=== PATIENT | female | born 1950 | race African-American/Black ===

== ENCOUNTER → 2022-08-12 10:19 | Outpatient (REF) | payer MEDICARE, MEDICAID, SELFPAY ==
--- NOTE | 2022-08-12 10:22 | CA_ITS ---
Transthoracic Echocardiogram Patient (Last, First, Middle): Carole Andrade, Gender: Female Date of : 1950 Age: 72 Procedure Date: 08/12/2022 Procedure Type: Transthoracic Echocardiogram Location: OP Height: 160.02 cm Weight: 70.76 kg BSA: 1.74 m2 Heart Rate: bpm BP: 135 / 78 mmHg Superintendent Track: MEÑO Referring MD: Araceli Cadet MD Symptoms: HTN Study Quality: Adequate ECG Rhythm: Sinus Conclusions: - The left ventricular systolic function is normal. The calculated ejection fraction is 57% by biplane method. - There is mild calcification of the aortic valve. - No obvious valvular pathology seen on this study. - Small plaque is seen in the sino tubular ridge. Findings Left Ventricle Normal left ventricular cavity size. There is mildly increased left ventricular wall thickness. The left ventricular systolic function is normal. The calculated ejection fraction is 57% by biplane method. There is no evidence of regional wall motion abnormalities. Diastolic function is normal for age. Right Ventricle Normal right ventricular cavity size and systolic function. Atria Both atria are normal in size. Aortic Valve There is a normal trileaflet aortic valve. There is mild calcification of the aortic valve. There is no aortic valve stenosis. There is no aortic valve regurgitation. Mitral Valve The mitral valve appears normal. There is trace mitral valve regurgitation. There is no mitral valve stenosis. Pulmonic Valve There is trace pulmonic valve regurgitation. Tricuspid Valve Normal tricuspid valve structure. There is trace tricuspid valve regurgitation. There is no evidence of pulmonary hypertension. Great Vessels The asc aorta is normal in size. Small plaque is seen in the sino tubular ridge. Venous The inferior vena cava is normal in size and collapses greater than 50% with inspiration. Pericardium/Pleural There is no evidence of pericardial effusion. Prior Study Comparison No prior study available for comparison. Recommendations, Care & Conclusions No obvious valvular pathology seen on this study. Measurements 2D Linear Measurements IVSd: 1.20 0.6-0.9/0.6-1.0 cm LVIDd: 4.29 3.9-5.3/4.2-5.9 cm LVIDd Index: 2.47 2.4-3.2/2.2-3.1 cm/m2 LVIDs: 2.21 2.0-3.6 cm LVPWd: 1.12 0.7-1.1 cm LA Diam: 3.80 2.7-3.8/3.0-4.0 cm LAIDs Index: 2.18 1.5-2.3 cm/m2 LV Mass: 218.25 67-162/88-224 g LV Mass Index: 125.43 43-95/49-115 g/m2 LVOT Diam: 1.90 3.0+(-)1.3 cm 2D Systolic Function EF 4C: 63.00 >55% EF 2C: 54.60 >55% EF BiP: 56.80 >55% Mitral Valve MV Pk E: 0.81 MV PK A: 0.97 MV Decel Time: 280.00 E/A: 0.80 E'Lateral: 8.27 E'Medial: 4.90 E/E' Med: 16.60 E/E' Lat: 9.80 PHT: 82.00 MVA PHT: 2.68 Decel [place]: 2.91 Aortic Valve AoV Pk Avinash: 1.71 AoV Mn Avinash: 1.03 AoV VTI: 0.40 AoV Pk Grad: 12.00 Aov Mn Grad: 5.00 ESME Cont.VTI: 1.77 LVOT LVOT Pk Avinash: 0.97 LVOT Mn Avinash: 0.61 LVOT VTI: 0.25 LVOT Pk Grad: 4.00 LVOT Mn Grad: 2.00 LVOT Diam: 1.90 LVOT Area: 2.84 Diastolic Function MV Pk E: 0.81 MV Pk A: 0.97 E/A: 0.80 E'Medial: 4.90 E/E' Med: 16.60 E' Laterial: 8.27 E/E' Lat: 9.80 Right Ventricle TAPSE (mm): 21.20 TVS' Avinash: 10.00 Tricuspid Valve TR Pk Avinash: 2.08 TR Pk Grad: 17.00 RA Press: 3.00 RVSP: 20.00 Great Vessels Aorta Sinus of Valsalva: 2.72 2.0-3.5 cm Ao Asc: 2.70 2.1-3.4 cm Updated in Other Vendor System with Status of Final Edison Villatoro MD electronically signed on 08/13/2022 10:15:32 AM with status of Final
== END ==
LOC: HO.CARD 10:19
PROVIDERS: PCP Internal Medicine; Visit Provider Internal Medicine
DX: I10 Essential (primary) hypertension (principal)
CPT/HCPCS: 93306

== ENCOUNTER 2023-08-13 12:58 | Emergency (ER) | payer MEDICARE, MEDICAID, SELFPAY ==
[2023-08-13 13:26] VITALS: BP 110/71; PULSE 72; RESP 18; TEMP 36.4; O2SAT 100; BMI 26.4
--- NOTE | 2023-08-13 13:32 | ED_ITS ---
HPI - General Adult General Chief complaint: General Medical Stated complaint: swollen feet/legs, red bites Related Data Allergies Allergy/AdvReac Type Severity Reaction Status Date / Time No Known Allergies Allergy Verified 08/13/23 13:34 Physical Exam ED Vital Signs: BMI result Body Mass Index 26.4 Course Course Course Narrative: EMILIA- 73 year old female presents for evaluation of leg swelling R>L over the last few days. She reports that she was at [facility] ER last night but left AMA. Plan for labs, chest x-ray, US of lower extremities to r/o DVT and will attempt to get records from [facility]. Medical Decision Making Lab Data 08/13/23 13:40 08/13/23 13:40 Labs: Lab Results 08/13/23 Range/Units 13:40 WBC 10.1 (4.8-10.8) X10*3/uL RBC 4.59 (4.20-5.50) X10*6/uL Hgb 13.5 (12.0-16.0) g/dl Hct 40.3 (37.0-47.0) % MCV 87.8 (80.0-98.0) fL MCH 29.4 (27.0-33.0) pg MCHC 33.5 (31.0-35.0) g/dl RDW 15.2 (11.0-16.0) % Plt Count 196 (160-400) X10*3/uL MPV 11.9 (9.4-12.3) fL Immature Gran % (Auto) 0.3 (0.0-0.4) % Neut % (Auto) 56.1 (45-73) % Lymph % (Auto) 34.2 (20-40) % Bradford % (Auto) 7.3 (2-11) % Eos % (Auto) 1.9 (0-4) % Baso % (Auto) 0.2 (0-2) % Lymph # (Auto) 3.5 (1.2-4.9) X10*3/uL Bradford # (Auto) 0.7 (0.1-1.2) X10*3/uL Eos # (Auto) 0.2 (0.0-0.4) X10*3/uL Baso # (Auto) 0.0 (0.0-0.2) X10*3/uL Abs Immat Gran (auto) 0.03 (0.00-0.03) X10*3/uL Absolute Neuts (auto) 5.7 (2.0-8.3) x10*3/uL Absolute Nucleated RBC 0.000 (0.0-0.012) X10*3/uL Nucleated RBC % (auto) 0.0 (0.0-0.2) /100WBC Sodium 140 (135-145) mmol/L Potassium 3.7 (3.3-5.1) mmol/L Chloride 107 (96-108) mmol/L Carbon Dioxide 21 L (22-29) mmol/L Anion Gap 16 (12-20) BUN 18 H (9-16) mg/dL Creatinine 0.89 (0.5-1.4) mg/dL Estim Creat Clear Calc 55.6 Estimated GFR > 60 Random Glucose 80 (60-115) mg/dL Calcium 10.4 H (8.4-10.2) mg/dL Total Bilirubin 0.4 (0.0-1.0) mg/dL AST 38 H (5-31) U/L ALT 47 H (0-31) U/L Alkaline Phosphatase 63 (39-117) U/L B-Natriuretic Peptide < 10 (<100) pg/mL Total Protein 8.6 H (6.5-8.0) g/dL Albumin 4.0 (3.5-5.0) g/dL Lipase 45 (8-78) U/L Discharge Plan Discharge Clinical Impression: Leg edema Patient Disposition: Left Without Being Seen Interventions: LWBS Worksheet Last Done: 08/13/23 15:00 Discharge Date/Time: 08/13/23 15:03
[2023-08-13 13:46] LABS: MANUAL DIFF FLAG NO
[2023-08-13 13:49] LABS: Basophils Percent Auto 0.2 % (0-2); Eosinophils Absolute Auto 0.2 X10*3/uL (0.0-0.4); Eosinophils Percent Auto 1.9 % (0-4); Hematocrit 40.3 % (37.0-47.0); Hemoglobin 13.5 g/dl (12.0-16.0); Imm Gran Abs Auto 0.03 X10*3/uL (0.00-0.03); Imm Gran Pct Auto 0.3 % (0.0-0.4); Lymphocytes Absolute Auto 3.5 X10*3/uL (1.2-4.9); Lymphocytes Percent Auto 34.2 % (20-40); Mean Corpuscular HGB Conc 33.5 g/dl (31.0-35.0); Mean Corpuscular Hemoglobin 29.4 pg (27.0-33.0); Mean Corpuscular Volume 87.8 fL (80.0-98.0); Mean Platelet Volume 11.9 fL (9.4-12.3); Monocytes Absolute Auto 0.7 X10*3/uL (0.1-1.2); Monocytes Percent Auto 7.3 % (2-11); Neutrophils Absolute Auto 5.7 x10*3/uL (2.0-8.3); Neutrophils Percent Auto 56.1 % (45-73); Platelet Count 196 X10*3/uL (160-400); Red Blood Count 4.59 X10*6/uL (4.20-5.50); Red Cell Distribution Width 15.2 % (11.0-16.0); White Blood Count 10.1 X10*3/uL (4.8-10.8)
[2023-08-13 14:09] LABS: B Type Natriuretic Peptide < 10 pg/mL (<100)
[2023-08-13 14:15] LABS: Alanine Aminotransferase 47 U/L (0-31); Alkaline Phosphatase 63 U/L (39-117); Anion Gap 16 (12-20); Aspartate Amino Transferase 38 U/L (5-31); Bilirubin Total 0.4 mg/dL (0.0-1.0); Blood Urea Nitrogen 18 mg/dL (9-16); Calcium 10.4 mg/dL (8.4-10.2); Carbon Dioxide 21 mmol/L (22-29); Chloride 107 mmol/L (96-108); Creatinine Clr Calc Pharmacy 55.6; Estimated Glomerular Filt Rate > 60; Glucose Random 80 mg/dL (60-115); Lipase 45 U/L (8-78); Potassium 3.7 mmol/L (3.3-5.1); Sodium 140 mmol/L (135-145); Total Protein 8.6 g/dL (6.5-8.0)
== END 2023-08-13 15:03 | disposition left against medical advice (07) ==
PROVIDERS: Physician Assistant; Emergency Provider Emergency Medicine; PCP Internal Medicine
DX: M79.89 Other specified soft tissue disorders (principal)
CPT/HCPCS: 36415; 80053; 83690; 83880; 85025; 99281; 99283

== ENCOUNTER 2023-08-28 15:09 | Outpatient (REF) | payer MEDICARE, MEDICAID, SELFPAY ==
--- NOTE | ~2023-08-28 | US_ITS ---
EXAMINATION: US VENOUS ULTRASOUND WITH DOPPLER LOWER EXTREMITY, RIGHT CLINICAL INFORMATION: COMPARISON: None available. TECHNIQUE: Ultrasound of the deep veins is performed from the hip to the calf with compression sonography and color and pulse Doppler assessment. Spectral analysis with color-flow imaging is performed. FINDINGS: There is normal venous compression and respiratory variation and augmented flow. The visualized common femoral vein, superficial femoral vein, profunda femoral vein, popliteal vein, and the trifurcation region shows no evidence of deep venous thrombosis. There is no significant popliteal fossa cyst. If the patient's symptoms persist, followup ultrasound in 5 days 7 days might be of value to exclude proximal propagation from a non-visualized calf vein. US/US venous duplex LE RT IMPRESSION: No DVT demonstrated in the right lower extremity.
== END 2023-08-28 15:10 | disposition home or self-care (01) ==
LOC: HO.US 15:09
PROVIDERS: Absent Provider Internal Medicine; PCP Internal Medicine; Visit Provider Registered Nurse
DX: R22.41 Localized swelling, mass and lump, right lower limb (principal)
CPT/HCPCS: 93971

== ENCOUNTER 2024-02-04 16:01 | Outpatient (REF) | payer OTHER, SELFPAY ==
[2024-02-04 18:26] LABS: Influenza A PCR NEGATIVE (Negative); Influenza B PCR NEGATIVE (Negative); Resp Syncy Virus RNA Qual PCR NEGATIVE (Negative); SARS COV2 PCR INHOUSE NEGATIVE (Negative)
== END 2024-02-04 16:02 | disposition home or self-care (01) ==
LOC: HO.CHCLNP 16:01
PROVIDERS: Visit Provider Family Medicine
DX: J09.X2 Influenza due to identified novel influenza A virus with other respiratory manifestations (principal); R09.81 Nasal congestion; R05.3 Chronic cough
CPT/HCPCS: 0241U

== ENCOUNTER 2024-06-15 15:50 | Outpatient (REF) | payer OTHER, SELFPAY ==
--- NOTE | ~2024-06-15 | XR_ITS ---
EXAMINATION: XR CHEST 2 VIEWS CLINICAL INFORMATION: Lower posterior chest rales. COMPARISON: None. TECHNIQUE: Frontal and lateral views of the chest were obtained. FINDINGS: The heart size is at least top normal. The great vessels, pulmonary vasculature and mediastinum are normal. The lungs show no focal infiltrate, effusion or pneumothorax. There is no acute osseous abnormality. XR/XR chest 2V IMPRESSION: No active cardiopulmonary disease. Electronically signed by: Doug Coombs MD 07/13/2024 12:57 PM EDT
--- NOTE | ~2024-06-15 | XR_ITS ---
EXAMINATION: XR HIP, LEFT CLINICAL INFORMATION: Lateral left hip pain. COMPARISON: None available. TECHNIQUE: AP and frog-leg lateral views of the left hip. FINDINGS: No fracture. Alignment is anatomic. Hip joint space is maintained. The left femoral head is smooth. Soft tissues are unremarkable. There are pelvic atherosclerotic calcifications. XR/XR hip LT min 2V IMPRESSION: Normal left hip. Electronically signed by: Doug Coombs MD 07/13/2024 02:51 PM EDT RP
== END 2024-06-15 15:51 | disposition home or self-care (01) ==
LOC: HO.XRAY 15:50
PROVIDERS: Absent Provider Internal Medicine; PCP Internal Medicine; Visit Provider Internal Medicine
DX: M25.552 Pain in left hip (principal); R09.89 Other specified symptoms and signs involving the circulatory and respiratory systems
CPT/HCPCS: 71046; 73502

== ENCOUNTER 2025-06-01 10:57 | Outpatient (REF) | payer OTHER, SELFPAY ==
--- OUTSIDE RECORDS SUMMARY | 2025-06-01 11:47 | XMS_ITS ---
[facility] Name [facility] Organization [facility] Results Test Name/Text Value Interpretation Date Range Source BNP BLD MCNC 43.0 pg/mL Normal 08/22/2023 0 - 100 [facility] FLORINA CREAT SERPL MCNC 0.9 mg/dL Normal 08/22/2023 0.5 - 1 [facility] POTASSIUM SERPL SCNC 4.4 mmol/L Normal 08/22/2023 3.5 - 5 .1 [facility] CALCIUM SERPL MCNC 9.3 mg/dL Normal 08/22/2023 8.4 - 10.2 [facility] CHLORIDE SERPL SCNC 108.0 mmol/L Above high normal 98 - 107 [facility] GLUCOSE SERPL MCNC 102.0 mg/dL Normal 08/22/2023 70 - 199 [facility] HCO3 SER SCNC 21.0 mmol/L Below low normal 08/22/2023 24 - 3 2 [facility] SODIUM SERPL SCNC 138.0 mmol/L Normal 08/22/2023 135 - 14 5 [facility] Glomerular filtration rate/1.73 sq M. predicted 68.0 Normal 08/22/2023 60 - [facility] BUN SERPL MCNC 15.0 mg/dL Normal 08/22/2023 7 - 17 CTT [facility] ANION GAP SERPL SCNC 9.0 mmol/L Normal 08/22/2023 5 - 14 [facility] NEUTROPHILS NO. BLD AUTO 6.7 K/uL Normal 08/22/2023 1.8 - 7.8 [facility] EOSINOPHIL NFR BLD AUTO 1.7 % Normal 08/22/2023 0 - 6 [facility] MONOCYTES NO. BLD AUTO 0.8 K/uL Normal 08/22/2023 0 - 0.8 [facility] PMV BLD AUTO 9.9 fL Normal 08/22/2023 7.4 - 11.4 [facility] FLORIAN BASOPHILS NFR BLD AUTO 1.8 % Normal 08/22/2023 0 - 2 [facility] LYMPHOCYTES NO. BLD AUTO 3.3 K/uL Above high normal 08/22/2023 1 - 3.2 [facility] MCHC RBC AUTO MCNC 34.8 g/dL Normal 08/22/2023 32 - 36 [facility] HGB BLD MCNC 13.2 g/dL Normal 08/22/2023 12.5 - 16 [facility] RAN MCH RBC QN AUTO 31.1 pg Normal 08/22/2023 25 - 33 [facility] NEUTROPHILS NFR BLD AUTO 59.8 % Normal 08/22/2023 44 - 74 [facility] DIFFERENTIAL TYPE AUTOMATED Normal 08/22/2023 C [facility] LYMPHOCYTES NFR BLD AUTO 29.5 % Normal 08/22/2023 20 - 48 [facility] EOSINOPHIL NO. BLD AUTO 0.2 K/uL Normal 08/22/2023 0 - 0.5 [facility] MCV RBC AUTO 89.5 fL Normal 08/22/2023 78 - 100 [facility] RAN BASOPHILS IN BLOOD BY AUTOMATED COUNT 0.2 K/uL Normal 08/22/2023 0 - 0.2 [facility] HCT VFR BLD AUTO 38.0 % Normal 08/22/2023 37 - 47 [facility] WBC NO. BLD AUTO 11.2 K/uL Above high normal 08/22/2023 4 - 10.5 [facility] MONOCYTES NFR BLD AUTO 7.2 % Normal 08/22/2023 2 - 12 [facility] RDW RBC AUTO RTO 15.9 % Normal 08/22/2023 12.1 - 16.2 [facility] PLATELET NO. BLD AUTO 215.0 K/uL Normal 08/22/2023 150 - 450 [facility] RBC NO. BLD AUTO 4.25 M/uL Normal 08/22/2023 4.2 - 5.4 CT [facility] Encounters Encounter Type Encounter Reason Primary Diagnosis [facility] Date [facility] Localized edema Localized edema [facility] 08/22/2023 Care Team Organization Name Specialty Phone Email Start Date End [facility] te [facility] 01/09/2024 01/18/2025 [facility] 01/09[place]2024 [facility] [place]16[place]2025 [facility] 08/22/2023
--- OUTSIDE RECORDS SUMMARY | 2025-06-01 11:47 | XMS_ITS | Encounter Summary ---
Author Organization [employer] Address [address] [facility] [address]t [place] [address] Care Team Providers Care Brim Molder Name Role Phone Araceli Cadet MD Primary Care Provider Encounter Details Date Type Department Care Team (Late st Contact Info) Description 12/23/2023 Orders Only [facility] CHC MED & PEDS [address] [place], [place] [phone] Araceli Cadet MD [address] [place] [address] Social History Tobacco Use Types Packs/Day Years Used Date Smoking Tobacco: Every Day Cigarettes 0.5 48 Smokeless Tobacco: Current Alcohol Use Standard Drinks/Week Comments Defer 0 (1 standard drink = 0.6 oz pur e alcohol) Housing Stability Answer Date Recorded What is your housing situation today? I do not have housing (Staying with others, in a hotel, in a intermediate, living outside on the street, on a beach, in a car, or in a park 08/11/[address] you li ve. Do you have problems with any of the following? None of the above 08/11/2023 Food Insecurity Answer Date Recorded Within the past 12 months, y ou worried that your food would run out before you got money to buy more: Never True 08/17/2023 Within the past 12 months,th e food you bought just didn't last and you didn't have enough money to get more: Never True Transportation Answer Date Recorded In the past 12 months, has l ack of transportation kept you from medical appts, meetings, work or from getting things needed for daily living? No 08/17/2023 Utilities Answer Date Recorded In the past 12 months, has t he [employer], [employer], oil or water company threatened to shut off services in your home? No 08/17/2023 Depression Answer Date Recorded Patient Health Questionnaire-2 Score 0 10/06/2022 Comments Unknown Sex and Gender Information Value Date Recorded Sex Assigned at Female 09/01/2022 10:21 AM EDT Legal Sex Female 10:21 AM EDT Gender Identity Female 09/01/2022 10:21 AM EDT Sexual Orientation Don't know 09/01/2022 10 :21 AM EDT documented as of this encounter Plan of Treatment Upcoming Encounters Date Type Department Care Team (Late st Contact Info) Description 06/19/2025 9:45 AM EDT Clinical Support [facility] MED & PEDS [address] [place] [address] documented as of this encounter Visit Diagnoses Not on filedocumented in this encounter Care Teams Brim Molder Relationship Specialty Start Date End Date Araceli Cadet MD [address] [place] [address] PCP - General Internal Medicine 11/02/18 documented as of this encounter
--- OUTSIDE RECORDS SUMMARY | 2025-06-01 11:47 | XMS_ITS | Clinical Summary ---
Author Organization [facility] Address [address] [place] [address] Care Team Providers Care Manager Maintenance Name Role Phone Unavailable Primary Care Provider Unavailabl e Allergies No known active allergies Medications No known medications Social History Tobacco Use Types Packs/Day Years Used Date Smoking Tobacco: Never Assessed Comments Unknown Sex and Gender Information Value Date Recorded Sex Assigned at Female 01/09/2024 2:03 PM EST Legal Sex Female 1:51 PM EST Gender Identity Female 01/09/2024 2:03 PM EST Sexual Orientation Choose not to disclose 2023 2:03 PM EST Last Filed Vital Signs Vital Sign Reading Time Taken Comments Blood Pressure 141/72 01/09/2024 2:18 PM EST Pulse 71 01/09/2024 1:55 PM EST Temperature 36.1 C (96.9 F) 01/09/2024 1:55 PM EST Respiratory Rate 18 01/09/2024 2:18 PM EST Oxygen Saturation 99% 01/09/2024 1:55 PM EST Inhaled Oxygen Concentration - - Weight - - Height - - Body Mass Index - - Plan of Treatment Health Maintenance Due Date Last Done Comments Hepatitis C Virus Screening 1950 DTaP/Tdap/Td Vaccines (1 - Tdap) 1971 Pneumococcal Vaccines 50+ (1 of 2 - PCV) 1971 Mammogram 1992 Colonoscopy 1997 Zoster (Shingles) Vaccine (1 of 2) 2002 DXA Bone Density (Females,Ages 65 and older) 2017 COVID-19 Vaccine (3 - season) 2024 02/06/2021, 01/09/2021 Influenza Vaccine 06/02/2025 08/02/2023, , 08/25/2020, Additional history exists RSV Vaccine 60 years and older and Patients (1 - 1-dose 75+ series) 2027 Hepatitis B Vaccines Aged Out No long er eligible based on patient's age to complete this topic Insurance MEDICARE PART A & B
--- OUTSIDE RECORDS SUMMARY | 2025-06-01 11:47 | XMS_ITS | Clinical Summary ---
Author Organization [facility] Address [address] [place] [id number] Care Team Providers Care Pediatric Care Coordinator Name Role Phone Unavailable Primary Care Provider Unavailabl e Allergies No known active allergies Medications No known medications Social History Tobacco Use Types Packs/Day Years Used Date Smoking Tobacco: Never Assessed Sex and Gender Information Value Date Recorded Sex Assigned at Female 08/21/2023 11:43 PM EDT Gender Identity Not on file Sexual Orientation Not on file Job Start Date Occupation Industry Not on file Not on file Not on file Last Filed Vital Signs Vital Sign Reading Time Taken Comments Blood Pressure 147/94 08/21/2023 11:12 PM EDT Pulse 82 08/21/2023 11:12 PM EDT Temperature 37 C (98.6 F) 08/21/2023 11:12 PM EDT Respiratory Rate 18 08/21/2023 11:12 PM EDT Oxygen Saturation 95% 08/21/2023 11:12 PM EDT Inhaled Oxygen Concentration - - Weight - - Height - - Body Mass Index - - Plan of Treatment Not on file
--- OUTSIDE RECORDS SUMMARY | 2025-06-01 11:47 | XMS_ITS | Clinical Summary ---
Author Organization [facility] Address [address] [place] [address] Care Team Providers Care Cupola Liner Helper Name Role Phone Unavailable Primary Care Provider Unavailabl e Social History Tobacco Use Types Packs/Day Years Used Date Smoking Tobacco: Never Assessed Comments Unknown Sex and Gender Information Value Date Recorded Sex Assigned at Not on file Legal Sex Female 1:02 PM EST Gender Identity Not on file Sexual Orientation Not on file Obstetrics History Plan of Treatment Health Maintenance Due Date Last Done Comments Breast Cancer Screening 1950 DTaP,Tdap,and Td Vaccines (1 - Tdap) 1971 Pneumococcal Vaccine: 50+ Ye ars (1 of 1 - PCV) 2002 Zoster Vaccines (1 of 2) 2002 Colorectal Cancer Screening: Colonoscopy 09/30/2022 Falls Risk Assessment 09/30/2022 Hepatitis C Screening 09/30/2022 Osteoporosis Screening (Bone Density Screening) 09/30/2022 Social Influencers of Health Screening 09/30/2022 COVID-19 Vaccine ( - 2023-2 5 season) 2024 Depression Screening 11/02/2024 Influenza Vaccine (#1) 2025 RSV Immunization Adult Patie nts (1 - 1-dose 75+ series) 2027 HIB Vaccines Aged Out No longer eligi ble based on patient's age to complete this topic HPV Vaccines Aged Out No longer eligi ble based on patient's age to complete this topic Hepatitis A Vaccines Aged Out No long er eligible based on patient's age to complete this topic Hepatitis B Vaccines Aged Out No long er eligible based on patient's age to complete this topic IPV Vaccines Aged Out No longer eligi ble based on patient's age to complete this topic MMR Vaccines Aged Out No longer eligi ble based on patient's age to complete this topic Meningococcal ACWY Vaccine Aged Out N o longer eligible based on patient's age to complete this topic Meningococcal B Vaccine Aged Out No l onger eligible based on patient's age to complete this topic RSV Immunization Patients Un david 20 months Aged Out No longer eligible b ased on patient's age to complete this topic Varicella Vaccines Aged Out No longer eligible based on patient's age to complete this topic
[2025-06-01 14:08] LABS: MANUAL DIFF FLAG NO
[2025-06-01 14:29] LABS: Hematocrit 44.6 % (37.0-47.0); Hemoglobin 14.5 g/dl (12.0-16.0); Imm Gran Abs Auto 0.02 X10*3/uL (0.00-0.03); Imm Gran Pct Auto 0.3 % (0.0-0.4); Lymphocytes Absolute Auto 2.1 X10*3/uL (1.2-4.9); Mean Corpuscular HGB Conc 32.5 g/dl (31.0-35.0); Mean Corpuscular Hemoglobin 28.8 pg (27.0-33.0); Mean Corpuscular Volume 88.7 fL (80.0-98.0); NRBC Abs Auto 0.000 X10*3/uL (0.0-0.012); NRBC Pct Auto 0.0 /100WBC (0.0-0.2); Platelet Count 159 X10*3/uL (160-400); Red Blood Count 5.03 X10*6/uL (4.20-5.50); White Blood Count 5.8 X10*3/uL (4.8-10.8)
[2025-06-01 14:43] LABS: Alanine Aminotransferase 25 U/L (0-31); Albumin Level 3.7 g/dL (3.5-5.0); Alkaline Phosphatase 72 U/L (39-117); Anion Gap 11 (12-20); Aspartate Amino Transferase 31 U/L (5-31); Blood Urea Nitrogen 13 mg/dL (9-16); Calcium 9.3 mg/dL (8.4-10.2); Carbon Dioxide 26 mmol/L (22-29); Chloride 111 mmol/L (96-108); Cholesterol 177 mg/dL (<200); Estimated Glomerular Filt Rate 59; HDL Cholesterol 22 mg/dL (>40); Potassium 3.8 mmol/L (3.3-5.1); Sodium 144 mmol/L (135-145); Total Protein 7.2 g/dL (6.5-8.0); Triglycerides 292 mg/dL (<150)
== END 2025-06-01 10:58 | disposition home or self-care (01) ==
LOC: HO.CHCLDS 10:57
PROVIDERS: Visit Provider Internal Medicine
DX: I10 Essential (primary) hypertension (principal); E78.00 Pure hypercholesterolemia, unspecified
CPT/HCPCS: 36415; 80053; 80061; 84443; 85025

== ENCOUNTER → 2025-07-12 07:51 | Outpatient (REF) | payer OTHER, SELFPAY ==
--- NOTE | 2025-07-12 07:54 | CA_ITS ---
Transthoracic Echocardiogram Patient (Last, First, Middle): Carole Andrade, Gender: F Date of : 1950 Age: 75 Procedure Date: 07/12/2025 Procedure Type: Transthoracic Echocardiogram Location: OP Height: 165.1 cm Weight: 72.58 kg BSA: 1.80 m2 Heart Rate: 46 bpm BP: 130 / 78 mmHg Tooth Cutter: TORRES Referring MD: Araceli Cadet MD C D Area Supervisor: Cuate Walls MD Symptoms: I10 HTN , LVH ON EKG Study Quality: Adequate ECG Rhythm: Bradycardia Conclusions: - 1. Normal LV ejection fraction of 60 65% with impaired relaxation filling pattern 2. Mild calcific aortic valve changes noted trace aortic regurgitation 3. No gross pericardial effusion Findings Left Ventricle Normal left ventricular size, thickness, and systolic function. The visually estimated ejection fraction is between 60-65%. Spectral Doppler is indicative of an impaired relaxation filling pattern. E/E prime ratio is between 8 and 15 consistent with indeterminate filling pressures. Right Ventricle Normal right ventricular cavity size and systolic function. Atria Both atria are normal in size. There is no evidence of interatrial shunt. Aortic Valve There is mild calcification of the aortic valve. There is no aortic valve stenosis. There is trace (trivial) aortic valve regurgitation. Mitral Valve Normal mitral valve structure and function. There is trace mitral valve regurgitation. There is no mitral valve stenosis. Pulmonic Valve The pulmonic valve is likely normal. There is mild pulmonic valve regurgitation. Tricuspid Valve Normal tricuspid valve structure. Tricuspid regurgitation envelope is inadequate for calculation of right ventricular systolic pressure. Normal right atrial pressure. Great Vessels All visible segments of the aorta are normal in size. The pulmonary artery was not well visualized. There is no dilatation of the ascending aorta measuring 3.00 cm. Venous The inferior vena cava is normal in size and collapses greater than 50% with inspiration. Pericardium/Pleural There is no evidence of pericardial effusion. Prior Study Comparison No significant change compared to prior study dated: 08/12/2022. Measurements 2D Linear Measurements IVSd: 1.09 0.6-0.9/0.6-1.0 cm LVIDd: 4.78 3.9-5.3/4.2-5.9 cm LVIDd Index: 2.66 2.4-3.2/2.2-3.1 cm/m2 LVIDs: 2.81 2.0-3.6 cm LVPWd: 0.73 0.7-1.1 cm LA Diam: 4.00 2.7-3.8/3.0-4.0 cm LAIDs Index: 2.22 1.5-2.3 cm/m2 LV Mass: 185.28 67-162/88-224 g LV Mass Index: 102.93 43-95/49-115 g/m2 LVOT Diam: 1.90 3.0+(-)1.3 cm 2D Systolic Function EF 4C: 67.40 >55% EF 2C: 63.20 >55% EF BiP: 64.00 >55% Mitral Valve MV Pk E: 0.60 MV PK A: 0.73 MV Decel Time: 309.00 E/A: 0.80 E'Lateral: 4.56 E'Medial: 3.12 E/E' Med: 19.40 E/E' Lat: 13.20 PHT: 90.00 MVA PHT: 2.44 Decel [place]: 1.96 Aortic Valve AoV Pk Avinash: 1.61 AoV Pk Grad: 10.00 ESME: 2.10 LVOT LVOT Pk Avinash: 1.10 LVOT Mn Avinash: 0.73 LVOT VTI: 0.20 LVOT Pk Grad: 5.00 LVOT Mn Grad: 3.00 LVOT Diam: 1.90 LVOT Area: 2.84 Diastolic Function MV Pk E: 0.60 MV Pk A: 0.73 E/A: 0.80 E'Medial: 3.12 E/E' Med: 19.40 E' Laterial: 4.56 E/E' Lat: 13.20 Right Ventricle TAPSE (mm): 14.30 TVS' Avinash: 9.38 Tricuspid Valve RA Press: 3.00 Great Vessels Aorta Sinus of Valsalva: 2.70 2.0-3.5 cm Ao Asc: 3.00 2.1-3.4 cm Pulmonary Veins Pulm Vein S/D 1.80 Pulmonary Valve PV Pk Avinash: 1.00 Peak PV Grad: 4.00 IA Pk Avinash: 2.19 Updated in Other Vendor System with Status of Final Cuate Walls MD electronically signed on 07/12/2025 1:36:37 PM with status of Final
--- OUTSIDE RECORDS SUMMARY | 2025-07-12 07:54 | XMS_ITS | Encounter Summary ---
Author Organization [employer] [facility] Address [address] [place] [address] Care Team Providers Care Hvac Technician Residential Name Role Phone Araceli Cadet MD Primary Care Provider [phone] Encounter Details Date Type Department Care Team (Late st Contact Info) Description 06/02/2025 Orders Only [facility] CHC MED & PEDS [address] [place], [place] [phone] Araceli Cadet MD [address] [place], [place] [phone] Social History Tobacco Use Types Packs/Day Years Used Date Smoking Tobacco: Every Day Cigarettes 0.5 48 Smokeless Tobacco: Current Alcohol Use Standard Drinks/Week Comments Defer 0 (1 standard drink = 0.6 oz pur e alcohol) Housing Stability Answer Date Recorded What is your housing situation today? I do not have housing (Staying with others, in a hotel, in a longterm, living outside on the street, on a [...] the past 12 months, has t he electric, gas, oil or water company threatened to shut [...] as of this encounter Plan of Treatment Not on file documented as of this encounter Visit Diagnoses Not on filedocumented in this encounter Care Teams Hvac Technician Residential Relationship Specialty Start Date End Date Araceli Cadet MD [address] [place] [address] PCP - General Internal Medicine 11/02/18 documented as of this encounter
--- OUTSIDE RECORDS SUMMARY | 2025-07-12 07:54 | XMS_ITS | Encounter Summary ---
Author Organization [employer] Address [address] [facility] [address] [place] [address] Care Team Providers Care Mica Miner Name Role Phone Araceli Cadet MD Primary Care Provider Reason for Visit * Reason Onset Date Comments requesting call back 06/05/2025 Encounter Details Date Type Department Care Team ([facility] st Contact Info) Description 06/05/2025 Telephone [facility] CHC MED & PEDS [address] [place] [address] Araceli Cadet MD [address] [place] [address] requesting call back Social History Tobacco Use Types Packs/Day Years Used Date Smoking Tobacco: Every Day Cigarettes 0.5 48 Smokeless Tobacco: Current Alcohol Use Standard Drinks/Week Comments Defer 0 (1 standard drink = 0.6 oz pur e alcohol) Housing Stability Answer Date Recorded What is your housing situation today? I do not have housing (Staying with others, in a hotel, in a senior living, living outside on the street, on a [...] AM EDT documented as of this encounter Miscellaneous Notes * Telephone Encounter - Zain Fermin - 06/05/2025 10:34 AM EDT Tc from [facility] with [facility] reporting the pts Heart rate at 52. [facility] states that pt is asymptomatic. Pt was last seen on the and [facility] would like to know pts heart rate, what is the normal heart rate? Contact guera at [phone] documented in this encounter Plan of Treatment Not on file documented as of this encounter Visit Diagnoses Not on filedocumented in this encounter Care Teams Mica Miner Relationship Specialty Start Date End Date Araceli Cadet MD [address] [place] [address] PCP - General Internal Medicine 11/02/18 documented as of this encounter
--- OUTSIDE RECORDS SUMMARY | 2025-07-12 07:54 | XMS_ITS | Encounter Summary ---
Author Organization [employer] Address [address] [facility] [address]t [place] [address] Care Team Providers Care Service Delivery Manager Name Role Phone Araceli Cadet MD Primary Care Provider Encounter Details Date Type Department Care Team (Late st Contact Info) Description 09/29/2022 Abstract [facility] MEDICINE [address] [place] [id number] Provider, MD Dee Dee Social History Tobacco Use Types Packs/Day Years [...] on filedocumented in this encounter Care Teams Service Delivery Manager Relationship Specialty Start Date End Date Araceli Cadet MD [address] [place] [address] PCP - General Internal Medicine 11/02/18 documented as of this encounter
--- OUTSIDE RECORDS SUMMARY | 2025-07-12 07:54 | XMS_ITS | Encounter Summary ---
Author Organization [employer] Address [address] [facility] [address] [place] [address] Care Team Providers Care Diesel Tractor Engine Mechanic Name Role Phone Araceli Cadet MD Primary Care Provider [phone] Reason for Visit * Reason Comments Med Refill Encounter Details Date Type Department Care Team ([facility] st Contact Info) Description 12/22/2023 Refill [facility] CHC MED & PEDS [address] [place], [place] [phone] Araceli Cadet MD [address] [place] [address] Essential hypertension Social History Tobacco Use Types Packs/Day Years Used Date Smoking Tobacco: Every Day Cigarettes 0.5 48 Smokeless Tobacco: Current Alcohol Use Standard Drinks/Week Comments Defer 0 (1 standard drink = 0.6 oz pur e alcohol) Housing Stability Answer Date Recorded What is your housing situation today? I do not have housing (Staying with others, in a hotel, in a assisted, living outside on the street, on a [...] documented as of this encounter Visit Diagnoses Diagnosis Essential hypertension Unspecified essential hypertension documented in this encounter Care Teams Diesel Tractor Engine Mechanic Relationship Specialty Start Date End Date Araceli Cadet MD [address] [place] [id number] PCP - General Internal Medicine 11/02/18 documented as of this encounter
--- OUTSIDE RECORDS SUMMARY | 2025-07-12 07:54 | XMS_ITS | Clinical Summary ---
Author Organization [facility] Address [address] [place] [address] Care Team Providers Care Financial Accountant Name Role Phone Unavailable Primary Care Provider [...] Health Maintenance Due Date Last Done Comments Advance Care Planning 1950 Hepatitis C Virus Screening 1950 DTaP/Tdap/Td Vaccines [...]
--- OUTSIDE RECORDS SUMMARY | 2025-07-12 07:54 | XMS_ITS | Encounter Summary ---
Author Organization [employer] Address [address] [facility] [address] [place] [address] Care Team Providers Care Practice Representative Name Role Phone Araceli Cadet MD Primary Care Provider Encounter Details Date Type Department Care Team (Late st Contact Info) Description 12/23/2023 Orders Only [facility]S [address] [place], [place] [phone] Araceli Cadet MD [address] [place], [place] [phone] Social History Tobacco Use Types Packs/Day Years Used Date Smoking Tobacco: Every Day Cigarettes 0.5 48 Smokeless Tobacco: Current Alcohol Use Standard Drinks/Week Comments Defer 0 (1 standard drink = 0.6 oz pur e alcohol) Housing Stability Answer Date Recorded What is your housing situation today? I do not have housing (Staying with others, in a hotel, in a alf, living outside on the street, on a [...] on filedocumented in this encounter Care Teams Practice Representative Relationship Specialty Start Date End Date Araceli Cadet MD [address] [place] [phone] PCP - General Internal Medicine 11/02/18 documented as of this encounter
--- OUTSIDE RECORDS SUMMARY | 2025-07-12 07:54 | XMS_ITS | Clinical Summary ---
Author Organization [facility] Address [address] [place] [address] Care Team Providers Care Foundry Laborer Coreroom Name Role Phone Unavailable Primary Care Provider [...]
--- OUTSIDE RECORDS SUMMARY | 2025-07-12 07:54 | XMS_ITS | Clinical Summary ---
Author Organization [employer] Address [address] [facility] [address] [place] [address] Care Team Providers Care Probate Clerk Name Role Phone Araceli Cadet MD Primary Care Provider Allergies No known active allergies Medications cholecalciferol (Vitamin D-3) 25 MCG (1000 UT) capsule Take 1 capsule by mouth. Once a day 2017 Active rosuvastatin (Crestor) 40 MG tabletIndications:Pure hypercholesterolemia TAKE ONE TABLET BY MOUTH EVERY DAY 30 tablet 5 2022 Active Blood Pressure Monitor kit Check blood pressure twice a week and when symptomatic 1 kit 2022 Active Incontinence Supply Disposable (Disposable Liners) miscIndications:Other urinary incontinence To use 4 times a day 120 each 11 2022 Active fenofibrate micronized (Lofibra) 134 MG capsule Take 1 capsule (134 mg) by mouth with breakfast. Every day with food 90 capsule 3 2023 Active fluticasone (Flonase) 50 MCG/ACT nasal sprayIndications:Seaso nal allergies INHALE ONE SPRAY IN EACH NOSTRIL EVERY DAY 16 g 3 2023 Active albuterol (Ventolin HFA) 108 (90 Base) MCG/ACT inhaler Inhale 2 puffs every 6 (six) hours if needed for wheezing. 2 puffs by inhalation route 4 times every day 18 g 3 2023 Active acetaminophen (Tylenol 8 Hour) 650 MG ER tabletIndications:Pain of right thumb,Fall, initial encounter Take 1 tablet (650 mg) by mouth every 8 (eight) hours if needed for mild pain. Do not crush, chew, or split. 90 tablet 2023 Active lisinopril 40 MG tabletIndications:Esse ntial hypertension TAKE ONE TABLET DAILY 90 tablet 5 2024 Active loratadine (Claritin) 10 MG tabletIndications:Seas onal allergies TAKE ONE TABLET BY MOUTH EVERY DAY 30 tablet 3 2024 Active atenolol (Tenormin) 50 MG tabletIndications:Esse ntial hypertension Take 1 tablet (50 mg) by mouth Once per day. 90 tablet 5 2024 Active furosemide (Lasix) 20 MG tabletIndications:Swel ling of lower extremity TAKE ONE TABLET EVERY MORNING 90 tablet 2024 Active hydroCHLOROthiazide (HYDRODiuril) 25 MG tabletIndications:Esse ntial hypertension TAKE ONE TABLET EVERY DAY 90 tablet 2024 Active hydrALAZINE (Apresoline) 25 MG tabletIndications:Esse ntial hypertension Take 1 tablet (25 mg) by mouth 3 times daily. 90 tablet 11 06/01 Active Aspirin Adult Low Strength 81 MG EC tabletIndications:Esse ntial hypertension TAKE ONE TABLET BY MOUTH EVERY DAY 30 tablet 11 2024 Active Aspirin Adult Low Strength 81 MG EC tabletIndications:Esse ntial hypertension TAKE ONE TABLET BY MOUTH EVERY DAY 30 tablet 11 07/11 Discontinued Active Problems Problem Noted Date Diagnosed Date Primary osteoarthritis 10/01/2023 Venous insufficiency 10/01/2023 Seasonal allergies 10/06/2022 Assessment & Plan (02/05/2024 2:46 AM EDT): Patient was prescribed a nasal spray (Flonase) and guaifenesin-codeine for her cough. Advised to monitor symptoms and blood pressure. The patient was also advised on potential dietary impacts on her condition, specifically regarding milk and ice cream consumption. Follow-up on persistent symptoms or any new concerns was recommended. Lichenification and lichen simplex chronicus Pure hypercholesterolemia 01/30/2012 Essential hypertension 08/04/2011 Encounters Date Type Department Care Team Description 07/10/2025 Refill [facility] PEDS [address] [place] [address] Araceli Cadet MD Essential hypertension 06/19/2025 9:45 AM EDT Clinical Support [facility] [address] [place] [address] Guera Gale, TEA Essential hypertension 06/19/2025 Travel 06/05/2025 Telephone [facility]ED[facility] [address] [place] [address] Araceli Cadet MD requesting call back 06/02/2025 Results Follow-Up [facility] [address] [place], [place] [phone] Janine Simpson RN CBC auto differential, Comprehensive Metabolic Panel, Lipid Panel, Standard, TSH with Reflex to Free T4 06/02/2025 Orders Only [facility] PED[facility] [address] [place] [address] Araceli Cadet MD 06/01/2025 9:30 AM EDT Office Visit [facility] [address] [place] [address] Araceli Cadet MD Screening for colon cancer (Primary Dx); Essential hypertension; Pure hypercholesterolemia 06/01/2025 Travel 05/31/2025 Telephone [facility] [address] [place] [address] Araceli Cadet MD Chart Prep 05/16/2025 Refill [facility] [address] [place] [address] Araceli Cadet MD Swelling of lower extremity; Essential hypertension from Last 3 Months Immunizations Immunization Administration Dates Next Due Influenza High-dose Quadriva lent Preservative Free 08/02/2023,08/07/2022,08/25/2020 Influenza Injectable Quadriv alant Preservative Free IIV4 MDCK 08/28/2017 Influenza injectable quadriv alent IIV4 with preservative 07/29/2018,10/03/2015 Influenza, High Dose Seasona l, Preservative Free 07/18/2024 Influenza, IIV3, injectable 10/14/2013 Influenza, Split (incl. alanna fied surface antigen) 11/24/2012 Influenza, intradermal, quad rivalent, preservative free 09/01/2016,07/28/2014 Moderna Covid-19 Vaccine 12+ 02/06/2021,01/10/20 21 Moderna Covid-19 Vaccine 6+ Bivalent 08/25/2022 Pneumococcal Conjugate PCV 13 08/25/2020 Pneumococcal Polysaccharide PPSV23 09/18/2016 Td (adult), unspecified 10/14/2000 Tdap 06/23/2024 Zoster, live 01/21/2016 Family History Medical History Relation Name Comments Dementia Daughter Relation Name Status Comments Daughter Social History Tobacco Use Types Packs/Day Years Used Date Smoking Tobacco: Every Day Cigarettes 0.5 48 Smokeless Tobacco: Current Tobacco Cessation:Ready to Q uit: Not Asked; Counseling Given: Not Answered Alcohol Use Standard Drinks/Week Comments Defer 0 [...] Don't know 09/01/2022 10 :21 AM EDT Last Filed Vital Signs Vital Sign Reading Time Taken Comments Blood Pressure 146/88 06/19/2025 10:35 AM EDT Pulse 47 06/19/2025 10:35 AM EDT Temperature 36.3 C (97.3 F) 06/15/2024 2:52 PM EDT Respiratory Rate 16 07/18/2024 10:5 7 AM EDT Oxygen Saturation 98% 06/19/2025 10: 33 AM EDT Inhaled Oxygen Concentration - - Weight 71.6 kg (157 lb 12.8 oz) 025 10:33 AM EDT Height 160 cm (5' 3 ) 06/15/2024 2:52 PM EDT Body Mass Index 27.95 06/15/2024 2:52 PM EDT Plan of Treatment Health Maintenance Due Date Last Done Comments CT Colonography 1950 Colonoscopy 1950 FIT 1950 Sigmoidoscopy 1950 Alcohol/Substance Use Screening 1964 Hepatitis C Screening 1970 Mammogram 1992 Lung Cancer Screening 2002 Zoster Vaccines (2 of 3) 03/17/2016 01/21/2016 Depression Screening 10/06/2023 10/06/2022, 10/06/20 22 SDOH Screening 10/06/2023 10/06/2022 COVID-19 Vaccine (4 - season) 2025 08/25/2022, 02/06/2021, 01/09/2021 Influenza Vaccine (#1) 2025 , 08/02/2023, 08/07/2022, Additional history exists Pneumococcal Vaccine: 50+ Years (3 of 3 - PCV20 or PCV21) 08/25/2025 08/25/2020, 09/18/2016 Tobacco Screening 06/01/2026 06/01/2025 FOBT 07/04/2026 07/04/2025 RSV Patients and Patients Aged 60 years or older (1 - 1-dose 75+ series) 2027 Colorectal Cancer Screening 07/04/2028 FIT DNA/Cologuard 07/04/2028 07/04/2025 Lipid Panel 06/01/2030 06/01/2025, 01/29/2022 DTaP/Tdap/Td Vaccines (2 - Td or Tdap) 06/23/2034 06/23/2024, 10/14/2000 HIB Vaccines Aged Out No longer eligi [...] patient's age to complete this topic Meningococcal Vaccine Aged Out No kel savanna eligible based on patient's age to complete this topic RSV under 20 months Aged Out No longe r eligible based on patient's age to complete this topic Rotavirus Vaccines Aged Out No longer eligible based on patient's age to complete this topic Procedures Procedure Name Priority Date/Time Associated Diagnosis Comments LAB COLOGUARD COLON CANCER SCREEN Routine 07/04/2025 8:30 AM EDT Screening for colon cancer LAB COLOGUARD COLON CANCER SCREEN- Unsuccessful Attempt Routine 06/14/2025 8:08 AM EDT Screening for colon cancer ECG 12-LEAD Routine 06/01/2025 1:03 PM EDT Essential hypertension TSH W/REFLEX TO FT4 Routine 06/01/2025 10:58 AM EDT Essential hypertension Pure hypercholesterolemia LIPID PANEL, STANDARD Routine 06/01/2025 10:58 AM EDT Essential hypertension Pure hypercholesterolemia COMPREHENSIVE METABOLIC PANEL Routine 06/01/2025 10:58 AM EDT Essential hypertension Pure hypercholesterolemia CBC WITH AUTO DIFFERENTIAL Routine 06/01/2025 10:58 AM EDT Essential hypertension Pure hypercholesterolemia from Last 3 Months Results * Cologuard?? colon cancer screening (07/04/2025 8:30 AM EDT) Only the most recent of2 resultswithin the time period is included. Cologuard Result Negative Negative 07/08/20 25 1:39 AM EDT [facility] (CLIA #:[id number]) Comment: The Cologuard (TM) test was performed on this specimen. NEGATIVE TEST RESULT. A negative Cologuard result indicates a low likelihood that a colorectal cancer (CRC) or advanced adenoma (adenomatous polyps with more advanced pre-malignant features) is present. The chance that a person with a negative Cologuard test has a colorectal cancer is less than 1 in 1500 (negative predictive value >99.9%) or has an advanced adenoma is less than 5.3% (negative predictive value 94.7%). These data are based on a prospective cross-sectional study of 10,000 individuals at average risk for colorectal cancer who were screened with both Cologuard and colonoscopy. (Darell Rosales al, N Engl J Med 2014;370(14):1286- 1297) The normal value (reference range) for this assay is negative. COLOGUARD RE-SCREENING RECOMMENDATION: Periodic colorectal cancer screening is an important part of preventive healthcare for asymptomatic individuals at average risk for colorectal cancer. Following a negative Cologuard result, the [place] [employer] Society and U.S. Multi-Society Task Force screening guidelines recommend a Cologuard re-screening interval of 3 years. References: [place] [employer] Guideline for Colorectal Cancer Screening: https://www.cancer.org/cancer/khkor-dalicn-kwvhpu/liqnroyon-fxebuhcxf-vicdikn/ac s-rec ommendations.html.; Gerson DK, Andres DIALLO, Debbie GarciaK, Colorectal Cancer Screening: Recommendations for Physicians and Patients from the U.S. Multi-Society Task Force on Colorectal Cancer Screening , Am J Gastroenterology 2017; 112:7724-0459. TEST DESCRIPTION: Composite algorithmic analysis of stool DNA-biomarkers with hemoglobin immunoassay. Quantitative values of individual biomarkers are not reportable and are not associated with individual biomarker result reference ranges. Cologuard is intended for colorectal cancer screening of adults of either sex, 45 years or older, who are at average-risk for colorectal cancer (CRC). Cologuard has been approved for use by the U.S. FDA. The performance of Cologuard was established in a cross sectional study of average-risk adults aged 50-84. Cologuard performance in patients ages 45 to 49 years was estimated by sub-group analysis of near-age groups. Colonoscopies performed for a positive result may find as the most clinically significant lesion: colorectal cancer [4.0%], advanced adenoma (including sessile serrated polyps greater than or equal to 1cm diameter) [20%] or non- advanced adenoma [31%]; or no colorectal neoplasia [45%]. These estimates are derived from a prospective cross-sectional screening study of 10,000 individuals at average risk for colorectal cancer who were screened with both Cologuard and colonoscopy. (Darell Hoffman et al, N Engl J Med 2014;370(14):8986-1031.) Cologuard may produce a false negative or false positive result (no colorectal cancer or precancerous polyp present at colonoscopy follow up). A negative Cologuard test result does not guarantee the absence of CRC or advanced adenoma (pre-cancer). The current Cologuard screening interval is every 3 years. ([place] [employer] Society and U.S. Multi-Society Task Force). Cologuard performance data in a 10,000 patient pivotal study using colonoscopy as the reference method can be accessed at the following location: www.[employer]/results. Additional description of the Cologuard test process, warnings and precautions can be found at www.[employer] Groupogddmap.comrd.com. Stool specimen (specimen) Rectal contents / Unknown 07/04/2025 8:30 AM EDT 07/05/2025 11:57 AM EDT us Araceli Cadet MD LAB MOLECULAR DIAGNOSTICS O RDERABLES Final Result [facility] (CLIA #:[id number]) [address] [place] [id number], * ECG 12 lead (06/01/2025 1:03 PM EDT) Narrative Araceli Cadet MD - 06/01/2025 1:03 PM EDT Heart rate 53 bpm. Nettie 54 degrees. No sign of left atrial LVH. No ST elevation or ST depression. us Araceli Cadet MD ECG ORDERABLES Final Resul t * TSH with Reflex to Free T4 (06/01/2025 10:58 AM EDT) Pathologist [facility] TSH reflex Free T4 0.92 0.32 - 4.0 uIU/mL [facility] Blood Venous blood specimen / Unknown 06/01/2025 10:58 AM EDT 06/01/2025 2:05 PM EDT us Araceli Cadet MD LAB BLOOD ORDERABLES Final Result Performing Organization Address City/State/[facility] Co de Phone Number [facility] [address] [place] [phone] * (ABNORMAL) CBC auto differential (06/01/2025 10:58 AM EDT) Pathologist [facility] White Blood Count 5.8 4.8 - 10.8 X10*3/uL [facility] Red Blood Count 5.03 4.20 - 5.50 X10*6/uL [facility] Hemoglobin 14.5 12.0 - 16.0 g/dl [facility] Hematocrit 44.6 37.0 - 47.0 % [facility] Mean Corpuscular Volume 88.7 80.0 - 98.0 fL [facility] Mean Corpuscular Hemoglobin 28.8 27.0 - 33.0 pg [facility] Mean Corpuscular HGB Conc 32.5 31.0 - 35.0 g/dl [facility] Red Cell Distribution Width 14.6 11.0 - 16.0 % [facility] Platelet Count 159(L) 160 - 400 X10*3/uL [facility] Mean Platelet Volume 13.3(H) 9.4 - 12.3 fL [facility] Neutrophils Percent Auto 54.4 45 - 73 % [facility] Imm Gran Pct Auto 0.3 0.0 - 0.4 % [facility] Lymphocytes Percent Auto 36.6 20 - 40 % [facility] Monocytes Percent Auto 7.3 2 - 11 % [facility] Eosinophils Percent Auto 0.9 0 - 4 % [facility] Basophils Percent Auto 0.5 0 - 2 % [facility] NRBC Pct Auto 0.0 0.0 - 0.2 /100WBC [facility] Neutrophils Absolute Auto 3.1 2.0 - 8.3 x10*3/uL [facility] Imm Gran Abs Auto 0.02 0.00 - 0.03 X10*3/uL [facility] Lymphocytes Absolute Auto 2.1 1.2 - 4.9 X10*3/uL [facility] Monocytes Absolute Auto 0.4 0.1 - 1.2 X10*3/uL [facility] Eosinophils Absolute Auto 0.1 0.0 - 0.4 X10*3/uL [facility] Basophils Absolute Auto 0.0 0.0 - 0.2 X10*3/uL [facility] NRBC Abs Auto 0.000 0.0 - 0.012 X10*3/uL [facility] Blood Venous blood specimen / Unknown 06/01/2025 10:58 AM EDT 06/01/2025 2:05 PM EDT us Araceli Cadet MD LAB BLOOD ORDERABLES Final Result [facility] [address] [place], [place] [phone] * (ABNORMAL) Lipid Panel, Standard (06/01/2025 10:58 AM EDT) Triglycerides 292(H) <150 mg/dL [facility] Comment:Desirable Triglyceri de: less than 150 mg/dLBorderline High Triglyceride 150-199 mg/dLHigh Triglyceride: 200-499 mg/dLVery High Triglyceride: greater than or equal to 5OO mg/dL Cholesterol 177 <200 mg/dL [facility] Comment:Desirable Cholestero l: less than 200 mg/dLBorderline High Cholesterol: 200-239 mg/dLHigh Cholesterol: greater than 239 mg/dL LDL Cholesterol Calculated 97 <100 mg/dL [facility] Comment:Desirable LDL: less than 100 mg/dLNear Optimal/Above Optimal LDL: 110- 129 mg/dLBorderline High LDL: 130-159 mg/dLHigh LDL: 160-189 mg/dLVery High LDL: greater than or equal to 190 mg/dL HDL Cholesterol 22(L) >40 mg/dL [facility] Comment:Desirable HDL: great er than 40 mg/dL Note: This HDL assay may give artificially low results in patients with liver disease. Blood Venous blood specimen / Unknown 06/01/2025 10:58 AM EDT 06/01/2025 2:05 PM EDT us Araceli Cadet MD LAB BLOOD ORDERABLES Final Result [facility] [address] [place] [phone] * (ABNORMAL) Comprehensive Metabolic Panel (06/01/2025 10:58 AM EDT) Sodium 144 135 - 145 mmol/L [facility] Potassium 3.8 3.3 - 5.1 mmol/L [facility] Chloride 111(H) 96 - 108 mmol/L [facility] Carbon Dioxide 26 22 - 29 mmol/L [facility] Anion Gap 11(L) 12 - 20 [facility] Urea Nitrogen (BUN) 13 9 - 16 mg/dL [facility] Creatinine, Serum 0.93 0.5 - 1.4 mg/dL [facility] Estimated Glomerular Filt Rate 59 [facility] Comment:Chronic Kidney Disea se: Estimated GFR < 60 mL/min/1.98j2Enioun Kidney Disease: Estimated GFR < 15 mL/min/1.73m2 Glucose 86 60 - 115 mg/dL [facility] Calcium 9.3 8.4 - 10.2 mg/dL [facility] Bilirubin, Total 0.5 0.0 - 1.0 mg/dL [facility] Aspartate Amino Transferase 31 5 - 31 U/L [facility] Alanine Aminotransferase 25 0 - 31 U/L [facility] Total Protein 7.2 6.5 - 8.0 g/dL [facility] Albumin Level 3.7 3.5 - 5.0 g/dL [facility] Alkaline Phosphatase 72 39 - 117 U/L [facility] Blood Venous blood specimen / Unknown 06/01/2025 10:58 AM EDT 06/01/2025 2:05 PM EDT us Araceli Cadet MD LAB BLOOD ORDERABLES Final Result [facility] [address] [place] [phone] from Last 3 Months Insurance [id number] [address] [facility] [employer]IAL [employer] (HMO D-SNP) [facility] STANDARD Care Teams Probate Clerk Relationship Specialty Start Date End Date Araceli Cadet MD [address] [place] [address] PCP - General Internal Medicine 11/02/18
--- OUTSIDE RECORDS SUMMARY | 2025-07-12 07:54 | XMS_ITS | Encounter Summary ---
Author Organization [employer] Address [address] [facility] [address] [place] [address] Care Team Providers Care Movie Theater Usher Name Role Phone Araceli Cadet MD Primary Care Provider [phone] Reason for Visit * Reason Comments Med Refill Encounter Details Date Type Department Care Team ([facility] st Contact Info) Description 07/10/2025 Refill [facility] PEDS [address] [place], [place] [phone] Araceli Cadet MD [address] [place] [address] Essential hypertension Social History Tobacco Use Types Packs/Day Years Used Date Smoking Tobacco: Every Day Cigarettes 0.5 48 Smokeless Tobacco: Current Alcohol Use Standard Drinks/Week Comments Defer 0 (1 standard drink = 0.6 oz pur e alcohol) Housing Stability Answer Date Recorded What is your housing situation today? I do not have housing (Staying with others, in a hotel, in a jail, living outside on the street, on a [...] hypertension documented in this encounter Care Teams Movie Theater Usher Relationship Specialty Start Date End Date Araceli Cadet MD [address] [place] [phone] PCP - General Internal Medicine 11/02/18 documented as of this encounter
--- OUTSIDE RECORDS SUMMARY | 2025-07-12 07:54 | XMS_ITS | Clinical Summary ---
Author Organization [facility] ity Address [address] [place] [address] Care Team Providers Care Phone Representative Name Role Phone Unavailable Primary Care Provider [...] 09/30/2022 Social Influencers of Health Screening 09/30/2022 Depression Screening 11/02/2024 COVID-19 Vaccine (1 - 2023-2 5 season) 2025 Influenza Vaccine (#1) 2025 RSV Immunization Adult [...]
--- OUTSIDE RECORDS SUMMARY | 2025-07-12 07:54 | XMS_ITS | Encounter Summary ---
Author Organization [employer] Address [address] [facility] [address] [place] [address] Care Team Providers Care Corpsman Name Role Phone Araceli Cadet MD Primary Care Provider Encounter Details Date Type Department Care Team (Late st Contact Info) Description 10/05/2022 Orders Only [facility] MEDICINE [address] [place] [address] Araceli Cadet MD [address] [place], [place] [phone] Social History Tobacco Use Types Packs/Day Years Used Date Smoking Tobacco: Never Assessed Depression Answer Date Recorded Patient Health Questionnaire-2 Score 0 10/06/2022 Comments Unknown Sex and Gender Information Value Date Recorded Sex Assigned at Female 09/01/2022 10:21 AM EDT Legal Sex Female 10:21 AM EDT Gender Identity Female 09/01/2022 10:21 AM EDT Sexual Orientation Don't know 09/01/2022 10 :21 AM EDT COVID-19 Exposure Response Date Recorded In the last 10 days, have yo u been in contact with someone who was confirmed or suspected to have Coronavirus/COVID-19? No / Unsure 10/06/2022 8:36 AM EST documented as of this encounter Functional Status * Over the past 2 weeks, how often have you been bothered by any of the following problems? Question Answer Date of Assessment Author Little interest or pleasure in doing things Not at all 10/06/2022 9:28 AM EST Naina Rodriguez Feeling down, depressed, or hopeless Not at all 10/06/2022 9:28 AM EST Naina Rodriguez Patient Health Questionnaire -2 Score 0 10/06/2022 9:28 AM Naina Pearson documented as of this encounter Plan of Treatment Not on file documented as of this encounter Procedures Procedure Name Priority Date/Time Associated Diagnosis Comments CBC WITH AUTO DIFFERENTIAL Routine 08/13/2023 1:40 PM EDT B TYPE NATRIURETIC PEPTIDE (BNP) Routine 08/13/2023 1:40 PM EDT LIPASE Routine 08/13/2023 1:40 PM EDT COMPREHENSIVE METABOLIC PANEL Routine 08/13/2023 1:40 PM EDT documented in this encounter Results * CBC auto differential (08/13/2023 1:40 PM EDT) White Blood Count 10.1 4.8 - 10.8 X10*3/uL [facility] Red Blood Count 4.59 4.20 - 5.50 X10*6/uL [facility] Hemoglobin 13.5 12.0 - 16.0 g/dl [facility] Hematocrit 40.3 37.0 - 47.0 % [facility] Mean Corpuscular Volume 87.8 80.0 - 98.0 fL [facility] Mean Corpuscular Hemoglobin 29.4 27.0 - 33.0 pg [facility] Mean Corpuscular HGB Conc 33.5 31.0 - 35.0 g/dl [facility] Red Cell Distribution Width 15.2 11.0 - 16.0 % [facility] Platelet Count 196 160 - 400 X10*3/uL [facility] Mean Platelet Volume 11.9 9.4 - 12.3 fL [facility] Neutrophils Percent Auto 56.1 45 - 73 % [facility] Imm Gran Pct Auto 0.3 0.0 - 0.4 % [facility] Lymphocytes Percent Auto 34.2 20 - 40 % [facility] Monocytes Percent Auto 7.3 2 - 11 % [facility] Eosinophils Percent Auto 1.9 0 - 4 % [facility] Basophils Percent Auto 0.2 0 - 2 % [facility] NRBC Pct Auto 0.0 0.0 - 0.2 /100WBC [facility] Neutrophils Absolute Auto 5.7 2.0 - 8.3 x10*3/uL [facility] Imm Gran Abs Auto 0.03 0.00 - 0.03 X10*3/uL [facility] Lymphocytes Absolute Auto 3.5 1.2 - 4.9 X10*3/uL [facility] Monocytes Absolute Auto 0.7 0.1 - 1.2 X10*3/uL [facility] Eosinophils Absolute Auto 0.2 0.0 - 0.4 X10*3/uL [facility] Basophils Absolute Auto 0.0 0.0 - 0.2 X10*3/uL [facility] NRBC Abs Auto 0.000 0.0 - 0.012 X10*3/uL [facility] 08/13/2023 1:40 PM EDT 08/13/2023 1:45 PM EDT [facility] External Provider LAB BLO OD ORDERABLES Final Result Performing Organization Address City/[facility]/ZIP Co de Phone Number [facility] [address] [place] [phone] * Lipase (08/13/2023 1:40 PM EDT) Lipase 45 8 - 78 U/L [facility] Comment:Lipemic Specimen 08/13/2023 1:40 PM EDT 08/13/2023 1:45 PM EDT Generic External Data Provider LAB BLOOD ORDERAB LES Final Result Performing Organization Address City/[facility]/ZIP Co de Phone Number [facility] [address] [place] [phone] * (ABNORMAL) Comprehensive Metabolic Panel (08/13/2023 1:40 PM EDT) Sodium 140 135 - 145 mmol/L [facility] Comment:Lipemic Specimen Potassium 3.7 3.3 - 5.1 mmol/L [facility] Comment:Lipemic Specimen Chloride 107 96 - 108 mmol/L [facility] Comment:Lipemic Specimen Carbon Dioxide 21(L) 22 - 29 mmol/L [facility] Anion Gap 16 12 - 20 [facility] Urea Nitrogen (BUN) 18(H) 9 - 16 mg/dL [facility] Comment:Lipemic Specimen Creatinine, Serum 0.89 0.5 - 1.4 mg/dL [facility] Comment:Lipemic Specimen Creatinine Clr Calc Pharmacy 55.6 [facility] Comment:Provided height and weight: 162.56 cm,69.853 kg.eGFR (calculated from the MDRD study equation) and eCrCl(calculated from the Cockcroft-Gault equation) are based ondifferent parameters and may not yield comparable results.If eCrCl result is absurd, please check patient'sheight/weight. Estimated Glomerular Filt Rate >60 [facility] Comment:NOTE: For -Am erican individuals, multiply the result by 1.210.Chronic Kidney Disease: Estimated GFR < 60 mL/min/1.16y3Dkewnf Kidney Disease: Estimated GFR < 15 mL/min/1.73m2 Glucose 80 60 - 115 mg/dL [facility] Comment:Lipemic Specimen Calcium 10.4(H) 8.4 - 10.2 mg/dL [facility] Comment:Lipemic Specimen Bilirubin, Total 0.4 0.0 - 1.0 mg/dL [facility] Comment:Lipemic Specimen Aspartate Amino Transferase 38(H) 5 - 31 U/L [facility] Comment:Lipemic Specimen Alanine Aminotransferase 47(H) 0 - 31 U/L [facility] Comment:Lipemic Specimen Total Protein 8.6(H) 6.5 - 8.0 g/dL [facility] Comment:Lipemic Specimen Albumin Level 4.0 3.5 - 5.0 g/dL [facility] Comment:Lipemic Specimen Alkaline Phosphatase 63 39 - 117 U/L [facility] Comment:Lipemic Specimen 08/13/2023 1:40 PM EDT 08/13/2023 1:45 PM EDT [facility] External Provider LAB BLO OD ORDERABLES Final Result Performing Organization Address [facility] Co de Phone Number [facility] [address] [place] [address] [phone] * B Type Natriuretic Peptide (BNP) (08/13/2023 1:40 PM EDT) B Type Natriuretic Peptide <10 <100 pg/mL [facility] Comment:For those patients w ho are being treated with Natrecor(nesiritide, recombinant BNP), BNP testing should beperformed at least two hours post treatment in order toensure that only endogenous levels of BNP are detected. 08/13/2023 1:40 PM EDT 08/13/2023 1:45 PM EDT [facility] External Provider LAB BLO OD ORDERABLES Final Result Performing Organization Address [facility] de Phone Number [facility] [address] [place] [phone] documented in this encounter Visit Diagnoses Not on filedocumented in this encounter Care Teams Corpsman Relationship Specialty Start Date End Date Araceli Cadet MD [address] [place] [phone] PCP - General Internal Medicine 11/02/18 documented as of this encounter
== END ==
LOC: HO.CARD 07:51
PROVIDERS: PCP Internal Medicine; Visit Provider Internal Medicine
DX: I10 Essential (primary) hypertension (principal)
CPT/HCPCS: 93306

== ENCOUNTER → 2025-07-12 07:54 | Outpatient (BNV) | payer OTHER, SELFPAY | PROVIDERS: PCP Internal Medicine; Visit Provider Internal Medicine Cardiovascular Disease | DX: I35.1 Nonrheumatic aortic (valve) insufficiency (principal); I37.1 Nonrheumatic pulmonary valve insufficiency | CPT/HCPCS: 93306 ==